=== PATIENT | male | born 1950 | race Hispanic/Latino ===

== ENCOUNTER 2017-02-28 11:08 | Emergency (ER) | payer BC, MEDICARE ==
[2017-02-28 11:08] VITALS: BMI 34.7
[2017-02-28] MEDS ORDERED: Sodium Chloride 0.9% 1,000 ML IV STA (12:31)
[2017-02-28] MEDS ORDERED: Alum-Mag Hydrox-Simethicone Susp (30 mL) PO STA (12:31)
--- NOTE | 2017-02-28 12:35 | ED PDOC ---
Arrival/HPI - General Chief Complaint: Abdominal Pain Time Seen by Provider: 02/28/17 12:12 Historian: Patient - History of Present Illness Narrative History of Present Illness (Text): you were treated in the ED today for hx of heart disease, recent stents, and having eaten garlic yesterday and epigstric discomfort but and nausea, otherwise without any vomiting/headache/dizziness/difficulty breathing/chest pain/numbness/tingling/loss of limb function/pain with urination. 02/28/17 12:32 Time/Duration: 4-6 hours Symptom Onset: Gradual Symptom Course: Unchanged Quality: Aching Severity Level: 4 Context: Sitting Past Medical History - Provider Review Nursing Documentation Reviewed: Yes - Travel History Have you recently traveled outside [place] w/in the past 3 mons?: Yes - Infectious Disease Hx of Infectious Diseases: None - Tetanus Immunization Tetanus Immunization: Unknown - Cardiac Hx Cardiac Disorders: Yes Hx Cardiac Arrhythmia: Yes Hx Hypertension: Yes - Pulmonary Hx Respiratory Disorders: No - Neurological Hx Neurological Disorder: No - HEENT Hx HEENT Disorder: No - Renal Hx Renal Disorder: No - Endocrine/Metabolic Hx Endocrine Disorders: Yes Hx Hypothyroidism: Yes - Hematological/Oncological Hx Blood Disorders: No - Integumentary Hx Dermatological Disorder: No - Musculoskeletal/Rheumatological Hx Musculoskeletal Disorders: No - Gastrointestinal Hx Gastrointestinal Disorders: No - Genitourinary/Gynecological Hx Genitourinary Disorders: No - Psychiatric Hx Psychophysiologic Disorder: No Hx Substance Use: No - Surgical History Hx Arteriovenous Shunt: Yes Hx Cardiac Catheterization: Yes Hx Coronary Artery Bypass Graft: Yes (x 5) Hx Open Heart Surgery: Yes - Anesthesia Hx Anesthesia: Yes Hx Anesthesia Reactions: No Hx Malignant Hyperthermia: No - Suicidal Assessment Feels Threatened In Home Enviroment: No Family/Social History - Physician Review Nursing Documentation Reviewed: Yes Family/Social History: No Known Family HX Smoking Status: Former Smoker Hx Alcohol Use: No Frequency of alcohol use: Socially Hx Substance Use: No Hx Substance Use Treatment: No Allergies/Home Meds Allergies/Adverse Reactions: Allergies No Known Allergies Allergy (Verified 02/28/17 11:35) Home Medications: Home Meds Medication Instructions Recorded Confirmed Febuxostat [Uloric] 40 mg PO DAILY 06/28/14 02/28/17 Furosemide 20 mg PO DAILY 06/28/14 02/28/17 Levothyroxine Sodium [Levo-T] 0.025 mg PO DAILY 06/28/14 02/28/17 [id number] CD [Cardizem CD] 30 mg PO BID 06/28/14 06/28/14 Apixaban [Eliquis] 5 mg PO BID 02/28/17 02/28/17 Aspirin [Ecotrin] 81 mg PO DAILY 02/28/17 02/28/17 Clopidogrel [Plavix] 75 mg PO DAILY 02/28/17 02/28/17 Irbesartan [Irbesartan] 150 mg PO DAILY 02/28/17 02/28/17 Metoprolol Succinate XL [Toprol XL] 25 mg PO DAILY 02/28/17 02/28/17 Rosuvastatin Calcium [Crestor] 20 mg PO DAILY 02/28/17 02/28/17 Review of Systems - Review of Systems Constitutional: Normal Eyes: Normal ENT: Normal Respiratory: Normal Cardiovascular: Normal Gastrointestinal: Abdominal Pain Genitourinary Male: Normal Musculoskeletal: Normal Skin: Normal Neurological: Normal Endocrine: Normal Hemo/Lymphatic: Normal Psychiatric: Normal Physical Exam Vital Signs Reviewed: Yes Vital Signs Temp Pulse Resp BP Pulse Ox 02/28/17 15:10 93 H 19 133/76 95 02/28/17 14:31 65 20 107/55 L 97 02/28/17 13:12 98 F 67 19 114/78 95 02/28/17 11:44 97.8 F 82 16 114/68 96 Temperature: Afebrile Blood Pressure: Normal Pulse: Regular Respiratory Rate: Normal Appearance: Positive for: Uncomfortable Pain Distress: None Mental Status: Positive for: Alert and Oriented X 3 - Systems Exam Head: Present: Atraumatic, Normocephalic Pupils: Present: PERRL Extroacular Muscles: Present: EOMI Conjunctiva: Present: Normal Ears: Present: Normal Mouth: Present: Moist Mucous Membranes Pharnyx: Present: Normal Nose (External): Present: Atraumatic Nose (Internal): Present: Normal Inspection Neck: Present: Normal Range of Motion Respiratory/Chest: Present: Clear to Auscultation, Good Air Exchange Cardiovascular: Present: Regular Rate and Rhythm Abdomen: Present: Tenderness, Other (epigastric) Back: Present: Normal Inspection Upper Extremity: Present: Normal Inspection Lower Extremity: Present: Normal Inspection Neurological: Present: GCS=15, CN II-XII Intact, Speech Normal, Motor Func Grossly Intact Skin: Present: Warm, Normal Color Psychiatric: Present: Alert, Oriented x 3, Normal Insight, Normal Concentration Medical Decision Making ED Course and Treatment: you were treated in the ED today for hx of heart disease, heart bypass surgery and now recent stents for heart 1.5 months ago and your taking aspirin/plavix, and having eaten garlic yesterday and epigstric discomfort but and nausea, otherwise without any vomiting/headache/dizziness/difficulty breathing/chest pain/numbness/tingling/loss of limb function/pain with urination. You were otherwise breathing easily, smiling with your and son, good strength/ sensation, walking easily, clear lungs, no abdomen tenderness, no fever temp 97.8 stable heart rate 82, stable breathing rate 16, excellent oxygen level 96% room air, stable blood pressure 114/68, you have blood tests no infection count 6, stable blood level hemoglobin 15/platelets 235 stable chemistry, mildly elevated glucose 142, heart blood test negative, lipase 120 normal, radiology CT abdomen/pelvis with dilated loops and definate obstruction can't be ruled out , ECG atrial fibrilliation, or, protonix, zofran, intravenous fluids, maalox, observation done in the ED with improvement, counselled to stay in the hospital for admission/further care but you refused and cautioned for complications/ but you were smiling and laughing and stated you were feeling well and thus you went home with your and understood. 1. Recommend over the counter pepcid as directed for anti-acid 2. Recommend follow-up primary care 1 days to review symptoms, referral cardiology for small pericadial fluid to ensure no complicaitions, and gastroenterology for thickened esophagus, referral to urology for renal cysts/enlarged prostate to ensure no complications/cancer development, surgery for gynceomastia/inguinal hernias/ to ensure no complications/cancer development. 4. If any worsening pain, fever, chills, nausea, vomiting, difficulty breathing, numbness, loss of limb function, pain with urination or any medical condition then return to the ED. 02/28/17 12:33 02/28/17 13:24 02/28/17 13:25 02/28/17 13:55 pt with coffee ground type emesis 300cc. pepcid, zofran given. pt in for ct a/p. 02/28/17 15:29 02/28/17 15:42 called pt cardioologist who didn't poultry picker. Reassessment Condition: Re-examined, Improved - Lab Interpretations Lab Results: 02/28/17 12:35 02/28/17 12:35 Lab Results 02/28/17 12:35: PT 14.1 H, INR 1.22 H, APTT 31.4 02/28/17 12:35: Sodium 144, Potassium 3.7, Chloride 102, Carbon Dioxide 31, Anion Gap 14, BUN 21, Creatinine 1.2, Est GFR ( Amer) > 60, Est GFR (Non- Af Amer) > 60, Random Glucose 142 H, Calcium 10.5, Magnesium 2.1, Total Bilirubin 0.5, AST 37, ALT 41, Alkaline Phosphatase 87, Lactate Dehydrogenase 521, Total Creatine Kinase 60, Troponin I < 0.01, Total Protein 8.6 H, Albumin 4.7, Globulin 3.8, Albumin/Globulin Ratio 1.2, Lipase 120 02/28/17 12:35: WBC 6.2, RBC 4.75, Hgb 15.0, Hct 43.7, MCV 92.0, MCH 31.6, MCHC 34.3, RDW 13.7, Plt Count 235, MPV 11.4 H, Gran % 67.4, Lymph % (Auto) 18.3 L, Barren % (Auto) 10.7 H, Eos % (Auto) 3.1, Baso % (Auto) 0.5, Gran # 4.17, Lymph # 1.1 L, Barren # 0.7 H, Eos # 0.2, Baso # 0.03 I have reviewed the lab results: Yes - RAD Interpretation Radiology Orders: 02/28/17 13:36 ABDOMEN & PELVIS [ABD & PELVIS IV CONTRAST ONLY] [CT] Stat Hydraulic Mechanic: Radiologist - EKG Interpretation Interpreted by ED Physician: Yes (afib) Type: 12 lead EKG Comparison: Similar to previous EKG (06/28/14) - Medication Orders Current Medication Orders: Discontinued Medications Al Hydrox/Mg Hydrox/Simethicone (Maalox Plus 30 Ml) 30 ml PO STAT STA Stop: 02/28/17 12:32 Last Admin: 02/28/17 12:52 Dose: 30 ml Sodium Chloride (Sodium Chloride 0.9%) 1,000 mls @ 999 mls/hr IV .Q1H1M STA Stop: 02/28/17 13:31 Last Admin: 02/28/17 12:52 Dose: 999 mls/hr eMAR Start Stop Document 02/28/17 12:52 GMI (Rec: 02/28/17 12:52 GMI [id number]) Intravenous Solution Start Date 02/28/17 Start Time 12:52 End Date 02/28/17 End time 14:25 Total Infusion Time 93 Famotidine (Pepcid 20mg/50ml Premix) 20 mg in 50 mls @ 100 mls/hr IVPB STAT STA Stop: 02/28/17 14:23 Last Admin: 02/28/17 14:31 Dose: 100 mls/hr eMAR Start Stop Document 02/28/17 14:31 GMI (Rec: 02/28/17 14:31 GMI [id number]) Intravenous Solution Start Date 02/28/17 Start Time 14:31 Ondansetron HCl (Zofran Inj) 4 mg IVP STAT STA Stop: 02/28/17 12:36 Last Admin: 02/28/17 12:45 Dose: 4 mg IVP Administration Document 02/28/17 12:45 GMI (Rec: 02/28/17 12:52 GMI [id number]) Charges for Administration # of IVP Administrations 1 Ondansetron HCl (Zofran Inj) 4 mg IVP STAT STA Stop: 02/28/17 13:55 Last Admin: 02/28/17 14:30 Dose: 4 mg IVP Administration Document 02/28/17 14:30 GMI (Rec: 02/28/17 14:31 GMI [id number]) Charges for Administration # of IVP Administrations 1 Pantoprazole Sodium (Protonix Inj) 80 mg IVP STAT STA Stop: 02/28/17 12:31 Last Admin: 02/28/17 12:53 Dose: 80 mg IVP Administration Document 02/28/17 12:53 GMI (Rec: 02/28/17 12:53 GMI [id number]) Charges for Administration # of IVP Administrations 1 Disposition/Present on Arrival - Present on Arrival Any Indicators Present on Arrival: No History of DVT/PE: No History of Uncontrolled Diabetes: No Urinary Catheter: No History of Decub. Ulcer: No History Surgical Site Infection Following: None - Disposition Have Diagnosis and Disposition been Completed?: Yes Diagnosis: Coffee ground emesis, Pain in the abdomen Disposition: AGAINST MEDICAL ADVICE Disposition Time: 15:49 Patient Plan: Discharge Condition: IMPROVED Additional Instructions: you were treated in the ED today for hx of heart disease, heart bypass surgery and now recent stents for heart 1.5 months ago and your taking aspirin/plavix, and having eaten garlic yesterday and epigstric discomfort but and nausea, otherwise without any vomiting/headache/dizziness/difficulty breathing/chest pain/numbness/tingling/loss of limb function/pain with urination. You were otherwise breathing easily, smiling with your and son, good strength/ sensation, walking easily, clear lungs, no abdomen tenderness, no fever temp 97.8 stable heart rate 82, stable breathing rate 16, excellent oxygen level 96% room air, stable blood pressure 114/68, you have blood tests no infection count 6, stable blood level hemoglobin 15/platelets 235 stable chemistry, mildly elevated glucose 142, heart blood test negative, lipase 120 normal, radiology CT abdomen/pelvis with dilated loops and definate obstruction can't be ruled out , ECG atrial fibrilliation, or, protonix, zofran, intravenous fluids, maalox, observation done in the ED with improvement, counselled to stay in the hospital for admission/further care but you refused and cautioned for complications/ but you were smiling and laughing and stated you were feeling well and thus you went home with your and understood. 1. Recommend over the counter pepcid as directed for anti-acid 2. Recommend follow-up primary care 1 days to review symptoms, referral cardiology for small pericadial fluid to ensure no complicaitions, and gastroenterology for thickened esophagus, referral to urology for renal cysts/enlarged prostate to ensure no complications/cancer development, surgery for gynceomastia/inguinal hernias/ to ensure no complications/cancer development. 4. If any worsening pain, fever, chills, nausea, vomiting, difficulty breathing, numbness, loss of limb function, pain with urination or any medical condition then return to the ED. Forms: [facility] (Polish)
[2017-02-28 13:02] LABS: ALBUMIN 4.7 g/dL (3.0-4.8); ALT/SGPT 41 U/L (7-56); AST/SGOT 37 U/L (17-59); BLOOD UREA NITROGEN 21 mg/dL (7-21); CALCIUM 10.5 mg/dL (8.4-10.5); GFR AFRICAN-AMERICAN > 60; GFR NON-AFRICAN AMERICAN > 60; LIPASE 120 U/L (23-300); MAGNESIUM 2.1 mg/dL (1.7-2.2)
[2017-02-28 13:11] LABS: ALB/GLOB RATIO 1.2 (1.1-1.8); TROPONIN I < 0.01 ng/mL
[2017-02-28 13:15] VITALS: TEMP 98
[2017-02-28 13:18] LABS: BASO # 0.03 [, K/mm3] (0.0-2.0); BASO % 0.5 % (0.0-3.0); EOS # 0.2 (0.0-0.7); EOS % 3.1 % (1.5-5.0); GRAN # 4.17 (1.4-6.5); GRAN % 67.4 % (50.0-68.0); LYMPH # 1.1 (1.2-3.4); LYMPH % 18.3 % (22.0-35.0); MEAN CORPUSCULAR HEMOGLOBIN 31.6 pg (25.0-35.0); MEAN CORPUSCULAR HGB CONC 34.3 g/dl (31.0-37.0); MEAN PLATELET VOLUME 11.4 fl (7.0-11.0); MONO # 0.7 (0.1-0.6); MONO % 10.7 % (1.0-6.0); RBC 4.75 [, 10^6/uL] (3.5-6.1); RED CELL DISTRIBUTION WIDTH 13.7 % (11.5-14.5); WHITE BLOOD COUNT 6.2 [, 10^3/ul] (4.5-11.0)
[2017-02-28 13:30] LABS: INR 1.22 (0.93-1.08); PARTIAL THROMBOPLASTIN TIME 31.4 Seconds (25.1-36.5); PROTHROMBIN TIME 14.1 SECONDS (9.4-12.5)
[2017-02-28] MEDS ORDERED: Famotidine 20mg/50ml 20 MG/50 ML BAG IVPB STA (13:54)
[2017-02-28] MEDS ORDERED: Iohexol 350 MG/100 ML VIAL ONE (14:05)
--- NOTE | 2017-02-28 15:20 | CT ---
PROCEDURE: CT Abdomen and Pelvis with contrast HISTORY: 66yoM, with abdomen pain/tenderness COMPARISON: None available. TECHNIQUE: Contrast dose: 100 mL Omnipaque 350 Radiation dose: Total exam DLP = 1139.44 mGy-cm. This CT exam was performed using one or more of the following dose reduction techniques: Automated exposure control, adjustment of the mA and/or kV according to patient size, and/or use of iterative reconstruction technique. FINDINGS: LOWER THORAX: No visible consolidation, pleural effusion, or pneumothorax. Partially imaged cardiomegaly. Dense coronary artery calcifications. Small pericardial effusion. Small hiatal hernia/distal esophageal wall thickening. Bilateral gynecomastia. LIVER: Unremarkable. GALLBLADDER AND BILE DUCTS: Unremarkable. PANCREAS: Unremarkable. SPLEEN: Unremarkable. ADRENALS: Unremarkable. KIDNEYS AND URETERS: The kidneys enhance symmetrically. No hydronephrosis or obstructing calculus identified. 13 mm left renal hypodensity measures approximately 6 HU, appear cystic. VASCULATURE: Dense atherosclerotic calcifications of the aorta and branches. No aortic aneurysm. BOWEL: Stomach is nondistended. Lack of oral contrast limits evaluation for bowel pathology. Dilated proximal loops of small bowel without discrete transition point appreciated ; early mechanical obstruction cannot be excluded. APPENDIX: The appendix appears within normal limits of caliber. No secondary signs of acute appendicitis. PERITONEUM: No significant free fluid. No definite free air. LYMPH NODES: No bulky adenopathy identified. BLADDER: Unremarkable. REPRODUCTIVE: The prostate gland measures approximately 3.8 x 5.1 cm. BONES: Median sternotomy wires. Multilevel degenerative changes of the spine. OTHER FINDINGS: Small fat containing bilateral inguinal hernias. IMPRESSION: Dilated proximal loops of small bowel without discrete transition point appreciated ; early mechanical obstruction cannot be excluded. Partially imaged cardiomegaly. Dense coronary artery calcifications. Small pericardial effusion. Mildly enlarged prostate gland. Recommend correlation with PSA. Small hiatal hernia/distal esophageal wall thickening. Bilateral gynecomastia. Additional findings as above.
[2017-02-28 16:11] VITALS: BP 128/72; PULSE 85; RESP 20; O2SAT 98
--- NOTE | 2017-03-01 09:19 | CARD ---
APPROVED REPORT EKG Measurement Heart [id number] <Conclusion> Atrial fibrillation LAD PRWP V 1 - 6, possible lead positioning NSSTW changes Otherwise no change
== END 2017-02-28 16:13 | disposition left against medical advice (07) ==
LOC: ED 11:08
DX: R10.9 Unspecified abdominal pain (principal); R11.10 Vomiting, unspecified; I10 Essential (primary) hypertension; E03.9 Hypothyroidism, unspecified; Z87.891 Personal history of nicotine dependence; Z79.01 Long term (current) use of anticoagulants
CPT/HCPCS: 74177; 80053; 82550; 83615; 83690; 83735; 84484; 85025; 85610; 85730; 93005; 96361; 96374; 96375; 96376; 99285; C9113; J2405; J7040; Q9967

== ENCOUNTER 2018-01-07 12:03 | Emergency (ER) | payer MEDICARE, OTHER ==
[2018-01-07 12:07] VITALS: RESP 18; TEMP 98; O2SAT 97; BMI 35.5
--- NOTE | 2018-01-07 13:13 | ED PDOC ---
Arrival/HPI - General Chief Complaint: Shortness Of Breath Time Seen by Provider: 01/07/18 12:06 Historian: Patient, Spouse ( patient's provided some information ) - History of Present Illness Narrative History of Present Illness (Text): 01/07/18 12:06 67 year old male, whose past medical history includes heart disease and recent stents, who presents to the Emergency department status post tripping and falling a few feet from the last step while getting out of a truck today, injuring his left rib area around 07:30-08:00 this morning. Patient states he wanted to avoid hitting his head since he has hit his head and bled internally in the past, so instead he let himself fall on his left rib area. Patient notes a productive cough for about 2 weeks now, stating he went to the doctor and has been taking cough syrup medication with significant relief. Patient notes shortness of breath and pain with deep inhalation since the fall. Patient denies any other complaints. Time/Duration: 4-6 hours (patient notes he tripped and fell around 07:30-08:00 this morning) Symptom Onset: Sudden Symptom Course: Unchanged Context: Tripped (pt notes he tripped and fell a few feet from the last step while getting out of a truck) Past Medical History - Provider Review Nursing Documentation Reviewed: Yes - Infectious Disease Hx of Infectious Diseases: None - Tetanus Immunization Tetanus Immunization: Unknown - Cardiac Hx Cardiac Disorders: Yes Hx Cardiac Arrhythmia: Yes Hx Hypertension: Yes - Pulmonary Hx Respiratory Disorders: No - Neurological Hx Neurological Disorder: No - HEENT Hx HEENT Disorder: No - Renal Hx Renal Disorder: No - Endocrine/Metabolic Hx Endocrine Disorders: Yes Hx Hypothyroidism: Yes - Hematological/Oncological Hx Blood Disorders: No - Integumentary Hx Dermatological Disorder: No - Musculoskeletal/Rheumatological Hx Musculoskeletal Disorders: No - Gastrointestinal Hx Gastrointestinal Disorders: No - Genitourinary/Gynecological Hx Genitourinary Disorders: No - Psychiatric Hx Psychophysiologic Disorder: No Hx Substance Use: No - Surgical History Hx Arteriovenous Shunt: Yes Hx Cardiac Catheterization: Yes Hx Coronary Artery Bypass Graft: Yes (x 5) Hx Open Heart Surgery: Yes - Anesthesia Hx Anesthesia: Yes Hx Anesthesia Reactions: No Hx Malignant Hyperthermia: No - Suicidal Assessment Feels Threatened In Home Enviroment: No Family/Social History - Physician Review Nursing Documentation Reviewed: Yes Family/Social History: No Known Family HX Smoking Status: Former Smoker Hx Alcohol Use: Yes Hx Substance Use: No Hx Substance Use Treatment: No Allergies/Home Meds Allergies/Adverse Reactions: Allergies No Known Allergies Allergy (Verified 02/28/17 11:35) Home Medications: Home Meds Medication Instructions Recorded Confirmed Febuxostat [Uloric] 40 mg PO DAILY 06/28/14 02/28/17 Furosemide 20 mg PO DAILY 06/28/14 02/28/17 Levothyroxine Sodium [Levo-T] 0.025 mg PO DAILY 06/28/14 02/28/17 [id number] CD [Cardizem CD] 30 mg PO BID 06/28/14 06/28/14 Apixaban [Eliquis] 5 mg PO BID 02/28/17 02/28/17 Aspirin [Ecotrin] 81 mg PO DAILY 02/28/17 02/28/17 Clopidogrel [Plavix] 75 mg PO DAILY 02/28/17 02/28/17 Irbesartan 150 mg PO DAILY 02/28/17 02/28/17 Metoprolol Succinate XL [Toprol XL] 25 mg PO DAILY 02/28/17 02/28/17 Rosuvastatin Calcium [Crestor] 20 mg PO DAILY 02/28/17 02/28/17 Review of Systems - Physician Review All systems were reviewed & negative as marked: Yes - Review of Systems Respiratory: SOB (pt notes shortness of breath status post tripping and falling), Cough (pt notes productive cough for about 2 weeks now. has gone to see doctor for it and taking cough syrup medication, with significant relief.), Other (pt notes pain with deep inhalation, status post trip & fall). absent: Normal Musculoskeletal: Other (pt notes pain to left rib area, status post falling onto that side ). absent: Normal Physical Exam Vital Signs Reviewed: Yes Vital Signs Temp Pulse Resp BP Pulse Ox 01/07/18 12:16 18 01/07/18 12:07 98.0 F 98 H 18 123/83 97 Temperature: Afebrile Blood Pressure: Normal Pulse: Tachycardic Respiratory Rate: Normal Appearance: Positive for: Well-Appearing, Non-Toxic Pain Distress: Moderate Mental Status: Positive for: Alert and Oriented X 3 - Systems Exam Head: Present: Atraumatic, Normocephalic Pupils: Present: PERRL Extroacular Muscles: Present: EOMI Conjunctiva: Present: Normal Mouth: Present: Moist Mucous Membranes Neck: Present: Normal Range of Motion Respiratory/Chest: Present: Clear to Auscultation, Good Air Exchange. No: Respiratory Distress, Accessory Muscle Use Cardiovascular: Present: Irregular Rhythm (irregularly irregular rhythm) Abdomen: No: Tenderness, Distention, Peritoneal Signs Breast/Axillary: Present: Tender to Palpation (tender on left mid axillary line, about rib 8-10) Back: Present: Normal Inspection Upper Extremity: Present: Normal ROM (Full ROM of left elbow), Other (abrasion to left elbow). No: Normal Inspection Lower Extremity: Present: Normal Inspection. No: Edema Neurological: Present: GCS=15, CN II-XII Intact, Speech Normal Skin: Present: Warm, Dry, Normal Color. No: Rashes Psychiatric: Present: Alert, Oriented x 3, Normal Insight, Normal Concentration Medical Decision Making ED Course and Treatment: 01/07/18 12:06 Impression: 67 year old male who presents to the Emergency department status post tripping and falling a few feet from the last step while getting out of a truck today, injuring his left rib area Plan: -- X-Ray of ribs left & PA chest -- Reassess and disposition Prior Visits: Notes and results from previous visits were reviewed. Patient was last seen in the emergency department on 02/28/17 presenting after eating garlic yesterday and having epigastric discomfort. Patient was discharged in improved condition AMA. Progress Notes: - RAD Interpretation Radiology Orders: 01/07/18 12:17 RIBS LEFT & PA CHEST [RAD] Stat - Medication Orders Current Medication Orders: Codeine Sulfate (Codeine) 30 mg PO STAT STA Stop: 01/07/18 13:10 - Scribe Statement The provider has reviewed the documentation as recorded by the Scribe Cande Perdomo All medical record entries made by the Scribe were at my direction and personally dictated by me. I have reviewed the chart and agree that the record accurately reflects my personal performance of the history, physical exam, medical decision making, and the department course for this patient. I have also personally directed, reviewed, and agree with the discharge instructions and disposition. Disposition/Present on Arrival - Present on Arrival Any Indicators Present on Arrival: No History of DVT/PE: No History of Uncontrolled Diabetes: No Urinary Catheter: No History of Decub. Ulcer: No History Surgical Site Infection Following: None - Disposition Have Diagnosis and Disposition been Completed?: Yes Diagnosis: Rib fracture Disposition: HOME/ ROUTINE Disposition Time: 13:20 Condition: GOOD Discharge Instructions (ExitCare): How to Use an Incentive Spirometer, Rib Fractures in Adults Additional Instructions: KRISTY THOMAS, thank you for letting us take care of you today. The emergency medical care you received today was directed at your acute symptoms. If you were prescribed any medication, please fill it and take as directed. It may take several days for your symptoms to resolve. Return to the Emergency Department if your symptoms worsen, do not improve, or if you have any other problems. Please contact your doctor or call one of the physicians/clinics you have been referred to that are listed on the Patient Visit Information form that is included in your discharge packet. Bring any paperwork you were given at discharge with you along with any medications you are taking to your follow up visit. Our treatment cannot replace ongoing medical care by a primary care provider outside of the emergency department. Thank you for allowing the [facility] team to be part of your care today. Follow up with your primary care doctor in 3-5 days for re-evaluation and and further management. Prescriptions: Acetaminophen with Codeine [Tylenol with Codeine #3 Tablet] 1 each PO Q6 PRN #15 tablet PRN Reason: Pain, Severe (8-10) Referrals: Madhu Velasco, [Family Provider] - Follow up with primary Forms: [facility] ([place]ian)
[2018-01-07 13:16] VITALS: BP 121/78; PULSE 86
--- NOTE | 2018-01-07 13:17 | RAD ---
Date of service: 01/07/2018 PROCEDURE: Radiographs of the Chest and Left Ribs. HISTORY: s/p fall - pain to mid-axillary at T8-T9 level COMPARISON: None available. TECHNIQUE: Frontal radiograph of the chest and multiple oblique radiographs of the left ribs were obtained. FINDINGS: LEFT RIBS: There is a displaced fracture of the left 8th rib. LUNGS: Clear. PLEURA: No pneumothorax or pleural fluid. CARDIOVASCULAR: Mild cardiomegaly. Multiple surgical clips and sternal wires no pulmonary vascular congestion. Aortic calcifications OTHER FINDINGS: None. IMPRESSION: There is a displaced fracture of the left 8th rib
--- NOTE | 2018-01-07 20:28 | CARD ---
APPROVED REPORT Date of service: 01/07/2018 EKG Measurement Heart [id number] <Conclusion> Atrial fibrillation Left axis deviation Left ventricular hypertrophy with QRS widening Abnormal ECG
== END 2018-01-07 14:10 | disposition home or self-care (01) ==
LOC: ED 12:03
DX: S22.32XA Fracture of one rib, left side, initial encounter for closed fracture (principal); W01.0XXA Fall on same level from slipping, tripping and stumbling without subsequent striking against object, initial encounter; I10 Essential (primary) hypertension; E03.9 Hypothyroidism, unspecified; Z87.891 Personal history of nicotine dependence